=== PATIENT | male | born 1970 | race Caucasian/White ===

== ENCOUNTER 2019-05-08 01:15 | Emergency (ER) | payer MEDICAID ==
[~2019-05-08] VITALS: Ht 177.8 cm; Wt 106.1 kg
[2019-05-08 01:15] VITALS: BP 134/74
[2019-05-08] MEDS ORDERED: FLUORESCEIN OPTH STRIP 0.6 MG OP ONE (01:45)
[2019-05-08] MEDS ORDERED: TETRACAINE HCL/PF 0.5% OPTH 4 ML BTL OP ONE (01:45)
[2019-05-08] MEDS ORDERED: TETRACAINE HCL/PF 0.5% OPTH 4 ML BTL ONE (01:55)
[2019-05-08] MEDS ORDERED: FLUORESCEIN OPTH STRIP 0.6 MG ONE (01:55)
[2019-05-08] MEDS ORDERED: GENTAMICIN OP 0.3% 15 MG/5 ML BTL OP ONE (02:30)
[2019-05-08] MEDS ORDERED: GENTAMICIN OP 0.3% 15 MG/5 ML BTL ONE (02:45)
[2019-05-08 02:55] VITALS: BP 134/74
== END 2019-05-08 02:55 | disposition home or self-care (01) ==
LOC: MED 01:15
DX: T15.01XA Foreign body in cornea, right eye, initial encounter (principal); W22.8XXA Striking against or struck by other objects, initial encounter; Y93.89 Activity, other specified; Y92.89 Other specified places as the place of occurrence of the external cause; Y99.8 Other external cause status
CPT/HCPCS: 65222; 99284